=== PATIENT | male | born 1935 | race Caucasian/White ===

== ENCOUNTER 2017-01-28 11:14 | Inpatient (IN) | payer MEDICARE ==
[~2017-01-28 11:14] MED LIST: 1-ME1LIQ PO; BUPIVACAINE LIPOSOME PF 1.3% 20 ML VIAL ONE; LANS30 PO; LIDO 2% SWISH-SWAL; MAG-LIQ PO; METH2.5 PO; ULTR50TA PO; VENTAER INH; VESI10TA4 PO; ZOCO40TA PO
[2017-01-28 11:25] VITALS: PULSE 66; RESP 18; TEMP 97.8; O2SAT 97
[2017-01-28] MEDS ORDERED: ceFAZolin 2 GM PREMIX 50 ML IV SCH (11:45)
[2017-01-28] MEDS ORDERED: SODIUM CHLORID 0.9% 500 ML IV SCH (11:45)
[2017-01-28] MEDS ORDERED: LACTATED RINGER'S 1000 ML IV SCH (11:45)
[2017-01-28] MEDS ORDERED: METOPROLOL TARTRATE 25 MG TAB PO PRN (11:45)
[2017-01-28] MEDS ORDERED: INSULIN HUMAN REGULAR 1,000 UNITS/10 ML VIAL SQ PRN (11:45)
[2017-01-28] MEDS ORDERED: NEOSTIGMINE 3 MG/3 ML SYR IV ONE (12:00)
[2017-01-28] MEDS ORDERED: ONDANSETRON HCL 4 MG/2 ML VIAL IV PUSH ONE (12:00)
[2017-01-28] MEDS ORDERED: PROPOFOL 200 MG/20 ML AMP IV ONE (12:00)
[2017-01-28 12:32] LABS: HEMATOCRIT 36.9 % (39.0-51.0); HEMO FLAGS DIFF FINAL; MEAN CELL VOLUME 89.1 FL (80.0-100.0); MEAN CORPUSCULAR HEMOGLOBIN 30.1 PG (27.0-34.0); MEAN CORPUSCULAR HGB CONC 33.7 % (32.0-36.0); PLATELET COUNT 220 TH/MM3 (150-450); RED BLOOD COUNT 4.14 MIL/MM3 (4.50-5.90); RED CELL DISTRIBUTION WIDTH 13.2 % (11.6-17.2); WHITE BLOOD COUNT 7.4 TH/MM3 (4.0-11.0)
[2017-01-28 12:33] LABS: BASOPHIL # 0.1 TH/MM3 (0-0.2); EOSINOPHIL # 0.2 TH/MM3 (0-0.4); EOSINOPHIL % 2.7 % (0.0-4.0); LYMPH % 32.3 % (9.0-44.0); LYMPHOCYTE # 2.4 TH/MM3 (1.0-4.8); MONO % 10.5 % (0.0-8.0); NEUT % 53.5 % (16.0-70.0)
[2017-01-28] MEDS ORDERED: BUPIVACAINE/EPINEPHRINE 0.5% PF 30 ML VIAL ONE (12:36)
[2017-01-28] MEDS ORDERED: AMLO10TA2 PO (12:38)
[2017-01-28] MEDS ORDERED: MULT1TAB84 PO (12:38)
[2017-01-28] MEDS ORDERED: METH2.5T PO (12:38)
[2017-01-28] MEDS ORDERED: ATOR40TA16 PO (12:38)
[2017-01-28] MEDS ORDERED: CHOL1CAP8 PO (12:38)
[2017-01-28] MEDS ORDERED: OXYB5TAB10 PO (12:38)
[2017-01-28] MEDS ORDERED: FOLI1CAP7 PO (12:38)
[2017-01-28] MEDS ORDERED: LANS30CA PO (12:38)
[2017-01-28] MEDS ORDERED: ASPI81CH3 CHEW (12:38)
[2017-01-28] MEDS ORDERED: FISH500C PO (12:38)
[2017-01-28] MEDS ORDERED: DEXAMETHASONE SOD PHOS 4 MG/ML VIAL ONE (12:49)
[2017-01-28] MEDS ORDERED: MIDAZOLAM HCL 5 MG/5 ML VIAL ONE (12:49)
[2017-01-28] MEDS ORDERED: BUPIVACAINE/EPINEPHRINE 0.25% PF 30 ML VIAL ONE (13:02)
[2017-01-28] MEDS ORDERED: fentaNYL CITRATE 250 MCG/5 ML AMP ONE (15:59)
[2017-01-28] MEDS ORDERED: ONDANSETRON HCL 4 MG/2 ML VIAL IV PRN (16:00)
[2017-01-28] MEDS ORDERED: METOCLOPRAMIDE HCL 10 MG/2 ML VIAL IV PRN (16:00)
[2017-01-28] MEDS ORDERED: SODIUM CHLORIDE 0.9% FLUSH 5 ML FLUSH IVF PRN (16:00)
--- NOTE | 2017-01-28 16:03 | HHI.PR ---
cc: Michael Hale MD Immediate Post Op Note Procedure Date: Jan 28, 2017 Pre Op Diagnosis: (1) Incisional hernia Post Op Diagnosis: (1) Incisional hernia Surgeon: Michael Hale Shredding Specialist(s): Mrs. Renita Herndon advanced registered nurse practitioner Procedure: Repair of multiple incisional hernias midline from previous surgery Repair incisional hernia with surgical management mesh 10 x 15 cm 150 cm Findings: Multiple incisional hernias in the midline Multiple intra-abdominal adhesions Estimated blood loss: 50 cc Anesthesia: General, Other (patient had a T AP Block by anesthesia in the preoperative period) Drains: CELINE IVF Patient to: PACU Patient Condition: Good Implant/Devices: SEE IMPLANT LOG (if applicable) Michael Hale MD Jan 28, 2017 16:03
[2017-01-28] MEDS ORDERED: *HYDROmorphone PF 1 MG VIAL PERIprocedural Use ONLY ONE ×2 (16:05→16:16)
[2017-01-28] MEDS ORDERED: NALOXONE HCL 0.4 MG/ML AMP IV PRN (16:15)
[2017-01-28] MEDS ORDERED: ACETAMINOPHEN 1000 MG/100 ML VIAL IV ONE (16:15)
[2017-01-28] MEDS: SODIUM CHLOR 0.9% 1000 ML INJ 1,000 ML IV SCH (16:30)
[2017-01-28] MEDS: PANTOPRAZOLE SODIUM 40 MG VIAL IV SCH (17:27)
[2017-01-28] MEDS: ACETAMINOPHEN 1000 MG/100 ML VIAL IV SCH (17:27)
[2017-01-28 17:57] VITALS: BP 141/68; PULSE 70; RESP 17; TEMP 95.1; O2SAT 97
[2017-01-28] MEDS: HYDROmorphone HCL PCA 6 MG/30 ML IV SCH (18:55)
[2017-01-28 20:00] VITALS: BP 118/85; PULSE 80; RESP 20; TEMP 96.5; O2SAT 94
[2017-01-28] MEDS: PCA - TOTAL MG DILAUDID DELIVERED PER SHIFT OTHER SCH (22:00)
[2017-01-28] MEDS ORDERED: PCA - TOTAL MG DILAUDID DELIVERED PER SHIFT IV SCH (22:00)
[2017-01-28] MEDS: SODIUM CHLORIDE 0.9% FLUSH 5 ML FLUSH IVF SCH (22:27)
[2017-01-29] VITALS: BP 120/82; PULSE 84; RESP 18; TEMP 97.1; O2SAT 97
[2017-01-29] MEDS: ACETAMINOPHEN 1000 MG/100 ML VIAL IV SCH ×3 (00:09→11:27)
[2017-01-29] MEDS: SODIUM CHLOR 0.9% 1000 ML INJ 1,000 ML IV SCH (03:15)
[2017-01-29 04:00] VITALS: BP 120/82; PULSE 84; RESP 18; TEMP 97; O2SAT 97
[2017-01-29] MEDS: PCA - TOTAL MG DILAUDID DELIVERED PER SHIFT OTHER SCH ×3 (05:39→22:00)
[2017-01-29] MEDS: SODIUM CHLORIDE 0.9% FLUSH 5 ML FLUSH IVF SCH ×2 (07:56→23:39)
[2017-01-29 08:00] VITALS: BP 118/63; PULSE 79; RESP 18; TEMP 95.8; O2SAT 90
--- NOTE | 2017-01-29 11:22 | HHI.PR ---
Subjective Subjective Notes DAILY PROGRESS NOTE FOR SURGICAL ATTENDING, DR. RIDDHI HALE Resting in bed Got up and out of bed last night with his son's help Objective Vitals/I&O Vital Signs Date Time Temp Pulse Resp B/P Pulse Ox O2 Delivery O2 Flow Rate FiO2 01/29/17 08:00 95.8 79 18 118/63 90 01/28/17 17:04 Nasal Cannula 3 Labs Laboratory Tests Test 01/28/17 12:00 White Blood Count 7.4 Red Blood Count 4.14 Hemoglobin 12.4 Hematocrit 36.9 Mean Corpuscular Volume 89.1 Mean Corpuscular Hemoglobin 30.1 Mean Corpuscular Hemoglobin 33.7 Concent Red Cell Distribution Width 13.2 Platelet Count 220 Mean Platelet Volume 8.1 Neutrophils (%) (Auto) 53.5 Lymphocytes (%) (Auto) 32.3 Monocytes (%) (Auto) 10.5 Eosinophils (%) (Auto) 2.7 Basophils (%) (Auto) 1.0 Neutrophils # (Auto) 4.0 Lymphocytes # (Auto) 2.4 Monocytes # (Auto) 0.8 Eosinophils # (Auto) 0.2 Basophils # (Auto) 0.1 CBC Comment DIFF FINAL Differential Comment Cardiovascular: Regular Lungs: Clear Abdomen: Other (midline incision with ANDI in place (good suction) and abdominal binder in place ) Extremities: No edema A/P Problem List: (1) Incisional hernia (2) History of incisional hernia repair Assessment and Plan 81 year old male POD1 open incisional hernia repair with mesh -Advance to fulls -DC Fluids -OOB and mobilize -PT eval and treat Attending Statement NOTE FOR SURGICAL ATTENDING, DR. RIDDHI HALE I agree with above assessment and plan. The exam, history, and the medical decision-making described in the above note were completed with the assistance of the mid-level provider. I reviewed and agree with the findings presented. I attest that I had a liba-is-keaa encounter with the patient on the same day, and personally performed and documented my assessment and findings in the medical record. He is doing well may be ready to discharge on Wednesday or Wednesday, and clinical status Follow-up appointment in my office on The following services were provided during this hospital visit: Chart data review, vital sign assessments/reviewing monitor data Review of consultations notes if present. Medication orders/review and/or management Ordering and/or reviewing lab tests Ordering and/or interpreting/reviewing x-rays and/or diagnostic studies Care of the patient and discussion of the patient with the care team Documentation time To help prompt me to consider important information that might be impacting today's encounter and assessment, information from prior notes written by myself or my colleagues may have been "brought forward/copy and pasted" into today's note. Sudha Herndon Jan 29, 2017 11:22 Riddhi Hale MD Jan 29, 2017 12:51
[2017-01-29 12:00] VITALS: BP 126/63; PULSE 73; RESP 18; TEMP 95.8; O2SAT 93
[2017-01-29] MEDS ORDERED: NORC5TAB PO (12:54)
--- NOTE | 2017-01-29 12:57 | HHI.FF ---
Face to Face Verification Diagnosis: (1) Incisional hernia (2) History of incisional hernia repair Physical Therapy Order: Evaluate and Treat Home Health Nursing Order: Medical education Wound care and dressing changes Nursing assessment with vital signs Instructions: CELINE care protocol Guilherme dressing protocol Patient needs to wear abdominal binder Home Health Aide Order: To Assist In: Bathing and personal care I have seen patient Emiliano Marquez on 01/29/17. My clinical findings support the need for the requested home health care services because: Limited ability to care for self High risk of falls I certify that my clinical findings support that this patient is homebound because: Post-op weakness Unsteady gait/balance Michael Hale MD Jan 29, 2017 12:57
[2017-01-29] MEDS ORDERED: ABDOMINAL BINDE1 MI1 (13:00)
--- NOTE | 2017-01-29 14:16 | MP ---
cc: RIDDHI HALE M.D. DATE OF SURGERY: 01/28/2017 PREOPERATIVE DIAGNOSIS Incisional hernia midline from previous surgery. POSTOPERATIVE DIAGNOSIS Incisional hernia midline from previous surgery. PROCEDURE Exploratory laparotomy, lysis of adhesions, repair of midline incisional hernia with biologic mesh, SurgiMend, 10 x 15 cm or 150 square centimeters. ANESTHESIA General with a TAP block. SURGEON Dr. Hale CONDENSER TUBE TENDER TONYA Pereira The VICE PRESIDENT LENDING was present from beginning to the end of the case assisting in all portions of the procedure. It was necessary to have this individual in the room to assist in the above surgical procedure. The surgical procedure was assisted by the VICE PRESIDENT LENDING. The VICE PRESIDENT LENDING presence was necessary throughout the case for appropriate retraction, dissection, visualization, and resection of the important anatomical structures during the surgical procedure. The VICE PRESIDENT LENDING was assisting throughout the entirety of the operation. The skill set of the VICE PRESIDENT LENDING is medically and surgically necessary to safely complete the surgical procedure. During the surgical case the operating room surgical manager was working instrument table and passing instruments to the attending surgeon and VICE PRESIDENT LENDING The VICE PRESIDENT LENDING was directly assisting the operating surgeon and involved in the technical aspects of the surgical case. INDICATION This is a pleasant 81-year-old gentleman who had a previous emergency surgery for perforated diverticulitis with a colostomy and then a reversal. This was done by another physician. He then subsequently developed an incisional hernia and he has asked me to repair his incisional hernia that is becoming more bothersome to him. DETAILS OF PROCEDURE The patient was taken to the operating room and placed in supine position. After endotracheal anesthesia his abdomen is prepped and draped with Betadine. Previously the radiologist did a TAP block on him. We prepped with Betadine. A timeout is done. He is given preoperative antibiotics. We make an incision just below the xiphoid down to around the umbilicus where the biggest hernia is located. He has multiple small hernias just off the midline up and down the complete incision. We take the anterior abdominal wall fascial adhesions down with a combination of blunt dissection, sharp dissection and electrocautery dissection. There is minimal manipulation of the bowel. We dissect circumferentially to free up all the adhesions along the anterior abdominal wall. We then create flaps just above the fascia in the subcutaneous tissue. There is multiple kind of Vincentian cheese effect in the midline from his previous surgeries. Once we dissect down for approximately 8-10 cm circumferentially we are able to reapproximate the fascia with interrupted 0 Ethibond suture. Because of the laxity of the fascia we then place a piece of biologic mesh, 10 x 15 cm, along the corner axis angle to completely cover the area in question. This is secured to the normal-appearing fascia circumferentially using 0 Ethibond interrupted suture. Once this was done we then place a CELINE in the dissecting planes. We then plicate the deep subcutaneous tissue to the mesh to obliterate the empty space. The skin is then re-approximated with the skin staple device. The CELINE is secured with a 3-0 nylon. A ANDI dressing is then placed. An abdominal binder is placed. The patient was extubated and returned to Recovery with no immediate post-op complications. I discussed the findings with the . MD DAR Bowman/MELINA /6:03 PM /2:05 PM YESICA
[2017-01-29 16:00] VITALS: BP 116/58; PULSE 81; RESP 20; TEMP 96.8; O2SAT 94
[2017-01-29] MEDS: PANTOPRAZOLE SODIUM 40 MG VIAL IV SCH (16:42)
[2017-01-29 20:00] VITALS: BP 119/64; PULSE 79; RESP 18; TEMP 97.9; O2SAT 92
[2017-01-29] MEDS ORDERED: diphenhydrAMINE HCL ELIXIR 12.5 MG/5 ML CUP PO SCH (21:00)
--- NOTE | 2017-01-29 23:39 | EKG ---
Date Performed: 01/28/2017 Time Performed: 12:08:39 PTAGE: 81 years EKG: Sinus rhythm RIGHT BUNDLE BRANCH BLOCK LEFT ANTERIOR FASCICULAR BLOCK MINIMAL VOLTAGE CRITERIA FOR LVH, CONSIDER NORMAL VARIANT ABNORMAL ECG PREVIOUS TRACING : 11/30/2015 14.16 DOCTOR: Radha Fitzgerald Interpretating Date/Time 01/29/2017 23:37:51
[2017-01-30] VITALS: BP 135/74; PULSE 82; RESP 18; TEMP 99.1; O2SAT 91
[2017-01-30 04:00] VITALS: BP 131/64; PULSE 77; RESP 18; TEMP 98.8; O2SAT 92
[2017-01-30] MEDS: PCA - TOTAL MG DILAUDID DELIVERED PER SHIFT OTHER SCH ×3 (06:00→22:00)
[2017-01-30] MEDS: HYDROmorphone HCL PCA 6 MG/30 ML IV SCH (06:26)
[2017-01-30 08:00] VITALS: BP 115/60; PULSE 72; RESP 18; TEMP 98.1; O2SAT 91
[2017-01-30] MEDS: SODIUM CHLORIDE 0.9% FLUSH 5 ML FLUSH IVF SCH ×2 (09:00→21:53)
--- NOTE | 2017-01-30 09:58 | HHI.PR ---
Subjective Subjective Notes feels OK, has pain, using DATABASE CONSULTANT. No flatus or BM yet, has been walking halls, will walk again when his comes. Objective Vitals/I&O Vital Signs Date Time Temp Pulse Resp B/P Pulse Ox O2 Delivery O2 Flow Rate FiO2 01/30/17 08:00 98.1 72 18 115/60 91 01/28/17 17:04 Nasal Cannula 3 Cardiovascular: Regular Lungs: Clear Abdomen: Non-distended, Other (ANDI intact, no drainage. CELINE with minimal serous drainage, pnik tinged.), Post-op tenderness Extremities: No edema, Perfused, SCD's on A/P Problem List: (1) Incisional hernia (2) History of incisional hernia repair Assessment and Plan POD 2 open repair incisional hernia with mesh. Awaiting return of bowel function. MOM, prune juice. Walk and wean DATABASE CONSULTANT. Hopefully home in 1-2 days. Basil Alas MD Jan 30, 2017 09:58
[2017-01-30] MEDS ORDERED: MAGNESIUM HYDROXIDE SUSP 30 ML CUP PO PRN (10:00)
[2017-01-30 12:00] VITALS: BP 108/66; PULSE 69; RESP 16; TEMP 97.1; O2SAT 94
[2017-01-30] MEDS: ACETAMINOPHEN/HYDROcodone 325 MG/10 MG TAB PO PRN ×2 (15:35→23:56)
[2017-01-30] MEDS: PANTOPRAZOLE SODIUM 40 MG VIAL IV SCH (15:35)
[2017-01-30 16:00] VITALS: BP 120/57; PULSE 80; RESP 18; TEMP 98.9; O2SAT 91
[2017-01-30] MEDS ORDERED: MAGNESIUM HYDROXIDE SUSP 30 ML CUP PO ONE (16:00)
[2017-01-30 20:00] VITALS: BP 121/61; PULSE 71; RESP 20; TEMP 98.5; O2SAT 94
[2017-01-31] VITALS: BP 138/65; PULSE 77; RESP 20; TEMP 98.3; O2SAT 94
[2017-01-31] MEDS: ACETAMINOPHEN/HYDROcodone 325 MG/5 MG TAB PO PRN (05:19)
[2017-01-31] MEDS: PCA - TOTAL MG DILAUDID DELIVERED PER SHIFT OTHER SCH ×3 (05:23→22:00)
[2017-01-31 08:00] VITALS: BP 166/79; PULSE 82; RESP 18; TEMP 97.9; O2SAT 96
[2017-01-31] MEDS: SODIUM CHLORIDE 0.9% FLUSH 5 ML FLUSH IVF SCH ×2 (08:08→22:19)
[2017-01-31] MEDS: ACETAMINOPHEN/HYDROcodone 325 MG/10 MG TAB PO PRN ×3 (09:10→22:21)
[2017-01-31 09:17] VITALS: BP 164/75; PULSE 75; RESP 18; TEMP 98.1; O2SAT 93
--- NOTE | 2017-01-31 10:04 | HHI.PR ---
Subjective Subjective Notes feels ok, mild pain, walking around room. wants regular food. flatus but no BM Objective Vitals/I&O Vital Signs Date Time Temp Pulse Resp B/P Pulse Ox O2 Delivery O2 Flow Rate FiO2 01/31/17 09:17 98.1 75 18 164/75 93 01/28/17 17:04 Nasal Cannula 3 Cardiovascular: Regular Lungs: Clear Abdomen: Non-distended, Post-op tenderness, BS normal Wound Wound : Wound Location: Abdomen Appearance: Clean & Dry Dressing: VAC A/P Problem List: (1) Incisional hernia (2) History of incisional hernia repair Assessment and Plan s/p open ventral incisional hernia repair/garrick dressing advance diet home soon. Bobby Reynolds MD Jan 31, 2017 10:04
[2017-01-31 12:00] VITALS: BP 169/79; PULSE 76; RESP 17; TEMP 96.9; O2SAT 94
[2017-01-31 16:00] VITALS: BP 167/74; PULSE 74; RESP 17; TEMP 98.7; O2SAT 95
[2017-01-31] MEDS: PANTOPRAZOLE SODIUM 40 MG VIAL IV SCH (17:29)
[2017-01-31 20:00] VITALS: BP 132/69; PULSE 77; RESP 20; TEMP 98.9; O2SAT 93
[2017-02-01 02:20] VITALS: BP 142/75; PULSE 76; RESP 18; TEMP 98.1; O2SAT 95
[2017-02-01] MEDS: PCA - TOTAL MG DILAUDID DELIVERED PER SHIFT OTHER SCH ×2 (06:00→14:00)
[2017-02-01 08:00] VITALS: BP 141/81; PULSE 84; RESP 18; TEMP 98.3; O2SAT 92
[2017-02-01] MEDS: SODIUM CHLORIDE 0.9% FLUSH 5 ML FLUSH IVF SCH (08:10)
[2017-02-01] MEDS: ACETAMINOPHEN/HYDROcodone 325 MG/5 MG TAB PO PRN (08:12)
[2017-02-01 12:00] VITALS: BP_SYST 119; BP_SYST 120; BP_DIAS 48; BP_DIAS 65; PULSE 65; PULSE 84; RESP 16; TEMP 98.1; TEMP 98.4; O2SAT 90; O2SAT 95
--- NOTE | 2017-02-16 12:05 | HHI.DS ---
Discharge Summary Admission Date Jan 28, 2017 at 16:00 Discharge Date: Feb 01, 2017 Admitting Diagnosis (1) Incisional hernia (2) History of incisional hernia repair Brief History 81 year old male s/p open incisional hernia repair with mesh PE at Discharge Alert and awake Resp: CTAB Cardio: RRR Abd: ANDI in place Hospital Course This is an 81 year old male s/p open incisional hernia repair with mesh. His diet was advanced as tolerated. His pain was controlled using oral pain medications. He was able to ambulate out of bed. He will follow up with Dr. Hale for ANDI dressing removal in about 1 week. Pt Condition on Discharge: Good Discharge Disposition: Disch w/ Home Health Serv Discharge Instructions DIET: Follow Instructions for: As Tolerated, No Restrictions Activities you can perform: See Additionl Instruction Other Activity Instructions: Home health care set up for ANDI dressing management and CELINE drain management Sudha Herndon Feb 16, 2017 12:05
== END 2017-02-01 14:22 | disposition home health service (06) | DRG 355 ==
LOC: HSDC 11:14 → HSDI 16:00 → N07A 17:23
PROVIDERS: ADMIT Surgery; ATTEND Surgery
PROC: 0WJJ0ZZ Inspection of Pelvic Cavity, Open Approach (ICD-10-PCS; 2017-01-28)
PROC: 3E0T3CZ (ICD-10-PCS; 2017-01-28)
PROC: 0WUF0JZ Supplement Abdominal Wall with Synthetic Substitute, Open Approach (ICD-10-PCS; principal; 2017-01-28 13:33)
DX: K43.2 Incisional hernia without obstruction or gangrene (principal); E78.00 Pure hypercholesterolemia, unspecified; I25.10 Atherosclerotic heart disease of native coronary artery without angina pectoris; Z88.6 Allergy status to analgesic agent; K21.9 Gastro-esophageal reflux disease without esophagitis; Z85.46 Personal history of malignant neoplasm of prostate
CPT/HCPCS: 85025; 93005; 94150; C9113; C9290; C9358; J0131; J0690; J1100; J1170; J2250; J2405; J2710; J3010; J7030